=== PATIENT | female | born 1955 | race Hispanic/Latino ===

== ENCOUNTER → 2022-04-27 | Outpatient (CLI) | payer OTHER ==
[2022-04-27 11:15] LABS: CREATININE 0.7 mg/dL (0.5-1.5)
== END | disposition home or self-care (01) ==
LOC: LAB 10:11
PROVIDERS: ATTEND Otolaryngology Plastic Surgery within the Head & Neck
DX: R43.9 Unspecified disturbances of smell and taste (principal)
CPT/HCPCS: 36415; 82565; 84520

== ENCOUNTER → 2022-05-07 | Outpatient (CLI) | payer OTHER ==
[~2022-05-07] MED LIST: GADOTERATE MEGLUMINE 10 MMOL/20 ML VIAL IV ONE
== END | disposition home or self-care (01) ==
LOC: RAH 13:10
PROVIDERS: ATTEND Otolaryngology Plastic Surgery within the Head & Neck
DX: R43.9 Unspecified disturbances of smell and taste (principal)
CPT/HCPCS: 70553; A9575